=== PATIENT | female | born 1970 | race Caucasian/White ===

== ENCOUNTER 2018-05-16 13:09 | Day surgery (SDC) | payer BC ==
[~2018-05-16] VITALS: Ht 160 cm; Wt 29.5 kg
[~2018-05-16 13:09] MED LIST: CYMBALTA 60MG60 MG PO; PAXIL CR 12.512.5 MG PO; VALIUM 2MG T2 MG/TAB PO; XANAX 1MG1 MG
[2018-05-16 13:41] VITALS: BP 124/73; PULSE 66; TEMP 98.5
[2018-05-16 14:45] VITALS: BP 126/77; PULSE 70; TEMP 98.2
[2018-05-16 15:00] VITALS: BP 125/72; PULSE 68
[2018-05-16 15:15] VITALS: BP 126/78; PULSE 62; TEMP 98.4
== END 2018-05-16 15:45 | disposition home or self-care (01) ==
LOC: SDCO 13:09
DX: K59.00 Constipation, unspecified (principal); K21.9 Gastro-esophageal reflux disease without esophagitis; E78.00 Pure hypercholesterolemia, unspecified; Z91.018 Allergy to other foods
CPT/HCPCS: J2250; J3010; J7030

== ENCOUNTER → 2018-05-17 | Outpatient (CLI) | payer BC | LOC: COL.RAD | DX: R10.11 Right upper quadrant pain (principal) | CPT/HCPCS: A9537; J2270 ==